=== PATIENT | male | born 1945 | race African-American/Black ===

== ENCOUNTER 2016-07-30 15:53 | Emergency (ER) | payer MEDICARE ==
[2016-07-30 16:30] VITALS: BMI 30.2
[2016-07-30 16:32] VITALS: TEMP 98.1
--- NOTE | 2016-07-30 16:35 | EDPRACDOC ---
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 THIS AM WAS THE LAST DOSE. Context: Reports: Ran out of Medication Medication for: Reports: Hypertension Pain: Reports: None ED Past Medical History - History Reviewed Yes Nurses notes reviewed and agree except as marked Travel Outside of [place] in the Last 3 Months?: No - Patient Medical History Cardiac History: Reports: Hypertension Psychological History: Denies: Depression Systemic History: Denies: Cancer - Social Medical History Smoking Status: Never smoker ETOH: None Substance Abuse: None Lives With: Other Lives In: Home EDM Review of Systems - Review of Systems ROS Negative Except as Marked: Yes All systems reviewed and were negative except as marked Constitutional: No Symptoms Reported. negative: Fever, Chills, Weakness, Fatigue, Loss of Appetite Eyes: No Symptoms Reported. negative: Redness, Blurred Vision, Double Vision, Discharge, Pain, Light Sensitive, Photophobia Ears: No Symptoms Reported. negative: Pain, Hearing Loss, Drainage, Ear Pulling Throat: No Symptoms Reported. negative: Pain, Swelling Nose: No Symptoms Reported. negative: Congestion, Bleeding, Discharge, Injection, Swelling, Deformity, Ecchymosis, Tender, Abrasion, Laceration Mouth: No Symptoms Reported. negative: Pain, Drooling Respiratory: No Symptoms Reported. negative: Cough, Brassy Cough, Barky Cough, Shortness of Breath, Wheezing, Hemoptysis Cardiovascular: No Symptoms Reported. negative: Chest Pain, Palpitations, Syncope, Edema, Orthopnea, PND, Skin Mottling, Cyanosis Gastrointestinal: No Symptoms Reported. negative: Pain, Constipation, Nausea, Vomiting, Diarrhea, Melena, Formula Intolerance Genitourinary: No Symptoms Reported. negative: Dysuria, Hematuria, Frequency, Discharge, Bleeding, Testicular Pain, Neurological: No Symptoms Reported. negative: Headache, Dizziness, Seizure, Numbness, Weakness, Speech Difficulty, Gait Difficulty Musculoskeletal: No Symptoms Reported. negative: Neck, Chestwall, Ribs, Back, Shoulder, Arm, Elbow, Forearm, Wrist, Hand, Pelvis, Hip, Femur, Knee, Leg, Ankle , Foot Integumentary: No Symptoms Reported. negative: Itching, Rash, Bruising, Wound Allergic/Immunologic: No Symptoms Reported. negative: Hives, Itching Hematologic: No Symptoms Reported. negative: Lymphadenopathy, Easy Bruising, Easy Bleeding Endocrine: No Symptoms Reported. negative: Weight Gain, Weight Loss Psychiatric: No Symptoms Reported. negative: Anxiety, Depression, Hallucinations, Insomnia, Suicidal - Physical Exam Constitutional: Alert (Awake), No apparent distress Oriented to: Time, Person, Place Last recorded Vital Signs: Last Vital Signs Temp 98.1 F 07/30/16 16:31 Pulse 73 07/30/16 16:31 Resp 18 07/30/16 16:31 BP 177/101 H 07/30/16 16:31 Pulse Ox 95 07/30/16 16:31 Oxygen Pulse Oxygen Saturation 95 O2 Device Room Air Oxygen Flow Rate Fraction of Inspired Oxygen ( FIO2) - HEENT Head: Normal ( normocephalic) Eye Exam: Normal (PERRL, EOMI, Sclera white) Oropharynx: Normal (Pharynx:Moist without exudate,Gums-no swelling) Tympanic Membrane: Normal ENT EAC: Normal TMJ: Normal Nose: No Symptoms Reported (septum midline) Neck: Normal (FROM, trachea at midline) - Respiratory/Cardiovascular Respiratory: Normal - CTA (BBS clear to auscultation without adventitious sounds ) Cardiovascular: Normal (RRR without murmur, gallop or rub), Other (BP ELEVATED AT BEDSIDE 177/101) - GI Auscultation: Normal (NABS) Palpation: Normal (Soft,No rebound or guarding, non distended) Tenderness: Non tender Monsivais's Sign: Negative - Musculoskeletal Back: Normal (Non-Tender) Extremities: Normal (Normal tone, Pulses 2+ No cyanosis or edema, FROM) - Integumentary Skin: Normal, Warm, Dry Lymphatics: Normal (no adenopathy) - Neurologic Memory Impaired: Normal Motor Function: Normal (Normal tone, Pulses 2+ No cyanosis or edema, FROM) Cranial Nerve: Normal (CN II-X11 intact sensation, strength 5/5) Cerebellar: Normal Mood Description: Normal Perception: Normal - Differential Diagnosis Medication Refill Decision Time to Discharge: 16:34 - Departure Disposition: Home Condition: Stable Final Diagnosis: Medication refill Instructions: Medication Refill Education/Counseling Given To: Patient Education/Counseling Given Regarding: Diagnosis, Treatment, Prognosis, Follow Up Referrals: None,No Provider [Primary Care Provider] - One Week Prescriptions: Metoprolol Tartrate [Lopressor] 100 mg PO BID #60 tablet Forms: Primary / Family Care Contact Additional Instructions: RETURN FOR WORSE OR DIFFERENT SYMPTOMS.
[2016-07-30 16:46] VITALS: BP 172/93; PULSE 79
== END 2016-07-30 16:43 | disposition home or self-care (01) ==
LOC: EDMC 15:53
DX: Z76.0 Encounter for issue of repeat prescription (principal)
CPT/HCPCS: 99282

== ENCOUNTER 2016-08-02 05:52 | Emergency (ER) | payer MEDICARE ==
[2016-08-02 05:53] VITALS: BMI 30.2
--- NOTE | 2016-08-02 06:13 | EDPRACDOC ---
- General Information Stated Complaint: COUGH/ RIB CAGE PAIN Time Seen by Provider: 08/02/16 06:07 Information Source: Patient Mode Of Arrival: Car Home Medications: Home Medications Metoprolol Tartrate 100 mg PO BID 07/30/16 Metoprolol Tartrate [Lopressor] 100 mg PO BID #60 tablet 07/30/16 Azithromycin [Zithromax] 250 mg PO DAILY #6 tablet 08/02/16 Allergies/Adverse Reactions: Allergies Allergy/AdvReac Type Severity Reaction Status Date / Time No Known Allergies Allergy Verified 07/30/16 16:30 - History of Present Illness HPI: COUGH, RUNNY NOSE, CONGESTION. PAIN IN RIBS WHEN HE COUGHS. NO FEVER. IN ED 3 DAYS AGO, JUST MOVED HERE, OUT OF BP MEDS. ED Past Medical History - History Reviewed Yes Nurses notes reviewed and agree except as marked - Patient Medical History Cardiac History: Reports: Hypertension Respiratory History: Reports: Asthma (PRIOR USE OF MDI) Psychological History: Denies: Depression Systemic History: Denies: Cancer - Social Medical History Smoking Status: Never smoker EDM Review of Systems - Review of Systems ROS Negative Except as Marked: Yes All systems reviewed and were negative except as marked - Physical Exam Constitutional: Alert (Awake), No apparent distress Oriented to: Time, Person, Place Last recorded Vital Signs: Oxygen Pulse Oxygen Saturation O2 Device Oxygen Flow Rate Fraction of Inspired Oxygen ( FIO2) - HEENT Head: Normal ( normocephalic) Eye Exam: Normal (PERRL, EOMI, Sclera white) Oropharynx: Normal (Pharynx:Moist without exudate,Gums-no swelling) Tympanic Membrane: Normal ENT EAC: Normal TMJ: Normal Nose: No Symptoms Reported (septum midline) Neck: Normal (FROM, trachea at midline) - Respiratory/Cardiovascular Respiratory: Normal - CTA (BBS clear to auscultation without adventitious sounds ) Cardiovascular: Normal (RRR without murmur, gallop or rub) - GI Auscultation: Normal (NABS) Palpation: Normal (Soft,No rebound or guarding, non distended) Tenderness: Non tender Monsivais's Sign: Negative - Musculoskeletal Back: Normal (Non-Tender) Extremities: Normal (Normal tone, Pulses 2+ No cyanosis or edema, FROM) - Integumentary Skin: Normal, Warm, Dry Lymphatics: Normal (no adenopathy) - Neurologic Memory Impaired: Normal Motor Function: Normal (Normal tone, Pulses 2+ No cyanosis or edema, FROM) Cranial Nerve: Normal (CN II-X11 intact sensation, strength 5/5) Cerebellar: Normal Mood Description: Normal Perception: Normal - Re-evaluation Re-evaluation 2 Re-evaluation Time: 06:44 (HYPERTENSIVE, BUT HASNT HAD AM BP MEDS YET) - Diagnostic Imaging Chest Image interpreted by: Radiologist Patient Name: LIZ PERERA LOC: ED : 1945 AGE: 71 Order Date:08/02/16 Date of Service: Report # [id number] Ord Physician: Joleen Fraga MD Exam # [id number] Emergency Physician: Joleen Fraga MD Exam(s): [id number] RAD/DG CHEST 2V CLINICAL DATA: Acute onset of shortness of breath. Initial encounter. EXAM: CHEST 2 VIEW COMPARISON: None. FINDINGS: The lungs are well-aerated. Mild bibasilar atelectasis is noted. There is no evidence of pleural effusion or pneumothorax. The heart is normal in size; the mediastinal contour is within normal limits. No acute osseous abnormalities are seen. IMPRESSION: Mild bibasilar atelectasis noted. Lungs otherwise clear. Electronically Signed By: Arturo Laguerre M.D. On: 08/02/2016 06:54 Electronically Signed By: Arturo Laguerre MD Electronically Signed Date/Time: 600003 Dictate Date/Time: 08/02/16 0653 Technologist: Maria L Ventura Transcribed By: Jake Transcribed Date/Time: 08/02/16 0654 - Additional Information NO HYPOXIA, NO RESPIRATORY DISTRESS PATIENT IS ANTICIPATED DO WELL AN OUTPATIENT)NOT IMMUNOCOMP. COMPROMISED. PROBABLE VIRAL SYNDROME PATIENT 'S POOR FOLLOW-UP HE IS JUST MOVED TO THIS AREA THEREFORE WILL DO APPEAR ANTIBIOTICS AT THIS TIME. - Departure Disposition: Home Condition: Stable Final Diagnosis: Bronchitis Upper respiratory infection Qualifiers: URI type: unspecified viral URI Qualified Code(s): J06.9 - Acute upper respiratory infection, unspecified Instructions: Upper Respiratory Infection (ED), Cold Symptoms (ED), Acute Bronchitis (ED) Education/Counseling Given To: Patient Education/Counseling Given Regarding: Diagnosis, Treatment, Prognosis Referrals: None,No Provider [Primary Care Provider] - One Week Prescriptions: New Azithromycin [Zithromax] 250 mg PO DAILY #6 tablet No Action Metoprolol Tartrate 100 mg PO BID Metoprolol Tartrate [Lopressor] 100 mg PO BID #60 tablet Additional Instructions: USE INHALER EVERY 4 HOURS NEEDED FOR COUGH OR WHEEZE.
[2016-08-02] MEDS ORDERED: ALBUTEROL 6.7 GM MDI INH ONE (06:25)
[2016-08-02 06:31] VITALS: TEMP 100.2
--- NOTE | 2016-08-02 06:56 | DIRPT ---
CLINICAL DATA: Acute onset of shortness of breath. Initial encounter. EXAM: CHEST 2 VIEW COMPARISON: None. FINDINGS: The lungs are well-aerated. Mild bibasilar atelectasis is noted. There is no evidence of pleural effusion or pneumothorax. The heart is normal in size; the mediastinal contour is within normal limits. No acute osseous abnormalities are seen. IMPRESSION: Mild bibasilar atelectasis noted. Lungs otherwise clear. Electronically Signed By: Arturo Laguerre M.D. On: 08/02/2016 06:54
[2016-08-02 07:21] VITALS: BP 155/91; PULSE 88
== END 2016-08-02 07:21 | disposition home or self-care (01) ==
LOC: ED 05:52
DX: J40 Bronchitis, not specified as acute or chronic (principal); J06.9 Acute upper respiratory infection, unspecified; I10 Essential (primary) hypertension; Z79.899 Other long term (current) drug therapy
CPT/HCPCS: 71020; 94640; 99283; A9270; J3490